=== PATIENT | female | born 1930 | race Caucasian/White ===

== ENCOUNTER 2017-04-16 09:33 | Emergency (ER) | payer MEDICARE, OTHER ==
[~2017-04-16 09:33] MED LIST: ACETAMINOPHEN650 M1 PO; ANTIVERT PO; ANTIVERT12.5 MG PO; BACTROBAN15 GM TOP; BAYER CHEWABLE81 MG PO; BIOTIN1 M1; CENTRUM PO; CERTAGEN PO; CIPRO PO; CITRATE OF MAG300 ML PO; COLACE PO; ERYTHROMYC3.5 GM OPT OD; FISH OIL 1,0001 CAP PO; FISH OIL300 MG; GINKGO60 MG; HYDROCODON-ACE1 EAC7 PO; KEFLEX PO; KEFLEX500 M2 PO; LEVAQUIN250 MG PO; LIPITOR PO; LIPITOR20 MG PO; LOTREL 5/10 MG1 CAP PO; MACROBID100 MG PO; MEDROL4 MG/DOSE- PO; MIRALAX17 GM PO; MULTI-DAY1 TAB; MULTI-DAY1 TAB PO; NEURONTIN100 MG PO; NEXIUM PO; PREVACID; PYRIDIUM PO; SENOKOT S1 TAB PO; SYNTHROID PO; SYNTHROID75 MCG PO; ULTRAM PO; VITAMIN D-32000 UNI2 PO; ZOCOR PO; [UNRECOGNIZED DRUG - REMARK] PO
== END 2017-04-16 12:25 | disposition home or self-care (01) ==
LOC: SED 09:33
DX: R53.83 Other fatigue (principal); Z88.2 Allergy status to sulfonamides; Z79.82 Long term (current) use of aspirin; Z79.899 Other long term (current) drug therapy
CPT/HCPCS: 99283

== ENCOUNTER 2017-05-01 04:40 | Emergency (ER) | payer MEDICARE, OTHER ==
--- NOTE | ~2017-05-01 | CR72 ---
[facility] A Service of [facility] & [facility] RADIOLOGY TEXT RESULTS PATIENT: MICHA JAIME LOCATION: [facility] : [birth year] UNIT #: [id number] AGE: [address]: Mina Young MD SEX: F ORDER DR: [id number] [facility] [address] [place], [place] [address] [id number] E MR#: [id number] Acc #: [id number] NAME: MICHA JAIME : 1930 SEX: F STUDY DATE/TIME: 05/01/2017 5:26 UNIT: [facility] ROOM: STUDY DESCRIPTION: CR Chest Single View Portable Attending Physician: Mina Young M.D. Ordering Physician: Catherine Linder M.D. Primary Care Physician: Art Shen Aprn MEDICAL IMAGING REPORT This report is preliminary unless electronic signature is present EXAM Portable chest INDICATIONS Dizziness since last night PROCEDURE Frontal view of the chest COMPARISON 12/03/2016 FINDINGS Heart size is within normal limits. No dense consolidation, pleural fluid, or pneumothorax. IMPRESSION No active process. Dictated by... Ronnie Castillo M.D. THIS IS AN ELECTRONICALLY VERIFIED REPORT Ronnie Castillo M.D. at 05/06/2017 3:01 PM [place] TD: 05/01/2017 13:29 JOB #: [id number] MEDICAL IMAGING REPORT Page 1 of 1 COPY
--- NOTE | ~2017-05-01 | CT71 ---
[facility] A Service of [facility] & [facility] RADIOLOGY TEXT RESULTS PATIENT: MICHA JAIME LOCATION: [facility] : [birth year] UNIT #: [id number] AGE: [address]: Mina Young MD SEX: F ORDER DR: [id number] [facility] [address] [place], [place] [address] [id number] E MR#: [id number] Acc #: [id number] NAME: MICHA JAIME : 1930 SEX: F STUDY DATE/TIME: 05/01/2017 6:20 UNIT: [facility] ROOM: STUDY DESCRIPTION: CT Head Wo Contrast Attending Physician: Mina Young M.D. Ordering Physician: Catherine Linder M.D. Primary Care Physician: Art Shen Aprn MEDICAL IMAGING REPORT This report is preliminary unless electronic signature is present EXAM Head CT no contrast 05/01/2017. INDICATIONS Dizziness, confusion, nausea, headaches since yesterday. History of vertigo. TECHNIQUE Noncontrast CT brain compared with 01/09/2015. This CT exam was performed with one or more of the following radiation dose reduction techniques: Automatic exposure control, adjustment of mA and/or kV according to patient size, and iterative reconstruction. FINDINGS There is mild generalized atrophy. Sulci and ventricles are otherwise unremarkable and there is no midline shift. No evidence of acute intracranial hemorrhage. No mass, mass effect or edema to suggest acute infarct. No extraaxial fluid collections are present. Interval new but otherwise chronic-appearing lacunar infarct lateral to the genu of the internal capsule on the left. There are chronic ischemic changes in the periventricular white matter and there is atherosclerotic disease. Globes are intact. Bones are intact. Chronic partial opacification of the mastoid air cell complex on the left. IMPRESSION 1. Atrophy and chronic ischemic changes. No clearly acute intracranial process. No evidence of acute intracranial hemorrhage. 2. 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 3. Chronic partial opacification of the mastoid air cell complex on the left. Dictated by... [facility] A Service of [facility] & [facility] RADIOLOGY TEXT RESULTS PATIENT: MICHA JAIME LOCATION: [facility] : [birth year] UNIT #: [id number] AGE: [address]: Mina Young MD SEX: F ORDER DR: Marcos James M.D. THIS IS AN ELECTRONICALLY VERIFIED REPORT Marcos James M.D. at 05/01/2017 3:32 PM Denis TD: 05/01/2017 13:31 JOB #: [id number] MEDICAL IMAGING REPORT Page 1 of 1 COPY
--- NOTE | ~2017-05-01 | MR18 ---
[facility] A Service of [facility] & [facility] RADIOLOGY TEXT RESULTS PATIENT: MICHA JAIME LOCATION: [facility] : [birth year] UNIT #: [id number] AGE: [address]: Mina Young MD SEX: F ORDER DR: [id number] [facility] [address] [place], [place] [address] [id number] E MR#: [id number] Acc #: [id number] NAME: MICHA JAIME : 1930 SEX: F STUDY DATE/TIME: 05/01/2017 8:42 UNIT: [facility] ROOM: STUDY DESCRIPTION: MR Brain Wo Contrast Attending Physician: Mina Young M.D. Ordering Physician: Mina Young M.D. Primary Care Physician: Art Shen Aprn MRI CENTER REPORT This report is preliminary unless electronic signature is present. EXAM MRI brain without. HISTORY 86-year-old female patient with a neurologic deficit. Patient complains of dizziness, confusion, nausea and headache since 04/30/2017. No history of cancer. FINDINGS MRI of the brain was performed without contrast using routine 1.5T imaging technique. There is some motion limitation of the study despite use of motion limiting sequences. There is a head CT for comparison from earlier today. There is no evidence for a recent ischemic insult on the diffusion series. There is a punctate focus of restricted diffusion seen in the left side mastoid air cells. This could be a tiny epidermoid/cholesteatoma. Opacified air cells are seen in this location on the earlier head CT. There is, however, no bone destruction. About 4-5 mm in diameter. At this time it is probably an incidental finding. Consider followup study in 6 months to a year to reassess. Patient has a partially empty sella. Partly seen are degenerative changes in the visualized upper cervical spine. There is generalized atrophy. There is no extraaxial fluid collection. Tiny lacunes in the cerebellar hemispheres. Moderate signal abnormality in the kathia all probably due to small vessel disease. Also bilateral basal ganglionic and thalamic plan lacunes and/or prominent perivascular spaces as well as moderate white matter signal abnormality most confluent in the deep to periventricular white matter. This is all probably due to small vessel disease in age group. There is no particular pattern of atrophy. There is no extraaxial fluid collection. There is no intracranial mass effect. There is no MRI evidence for intracranial hemorrhage. 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 The major intracranial flow voids are maintained. There is prior cataract surgery on the right side. Fluid or inflammatory change noted in the left side mastoid air cells in general. Consider ENT referral given this finding and the small focus of restricted diffusion. Minor paranasal sinus disease, but no sinus air-fluid level. IMPRESSION 1. No evidence for a recent ischemic insult on the diffusion series. 2. 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 3. There is a 4-5 mm focus of restricted diffusion within medial left mastoid air cells. There is no associated bone destruction. This could be a small cholesteatoma/epidermoid. Otherwise there is some opacification of left-sided mastoid air cells. Consider ENT referral for further evaluation at this time. I suspect the restricted diffusion is essentially incidental, but I would recommend that it be followed over the long-term to reassess for change. Recommend next followup MRI with attention to the internal auditory canals at about 6 months to a year. Please correlate clinically to determine if there is concern that the left-sided mastoid air cell opacification is related to the patient's dizziness. STAT * RESULT Dictated by... Ciara Alberts M.D. THIS IS AN ELECTRONICALLY VERIFIED REPORT Ciara Alberts M.D. at 05/01/2017 10:41 AM SAC/pc TD: 05/01/2017 10:16 JOB #: [id number] MRI CENTER REPORT Page 1 of 1 COPY
--- NOTE | ~2017-05-01 | EKG ---
PATIENT: MICHA JAIME UNIT #: [id number] Ventricular Rate: 64 BPM Atrial Rate: 64 BPM P-R Interval: 174 ms QRS Duration: 82 ms Q-T Interval: 412 ms QTC Calculation(Bezet): 425 ms P [place]: 34 degrees Calculated R [place]: -21 degrees Calculated T [place]: 24 degrees Diagnosis Line: Normal sinus rhythm Diagnosis Line: Normal ECG Diagnosis Line: No previous ECGs available Diagnosis Line: Confirmed by JESÚS GILMORE MD ([id number]) on 05/06/2017 Diagnosis Line: 2:29:06 PM INTERPRETING MD: MANDO THOMPSON
[2017-05-01] MEDS ORDERED: LIPITOR40 MG PO (05:22)
[2017-05-01] MEDS ORDERED: PRINIVIL10 MG PO (05:23)
[2017-05-01] MEDS ORDERED: GINKGO BILOBA120 M1 PO (05:23)
[2017-05-01] MEDS ORDERED: ALEVE220 M1 PO (05:23)
[2017-05-01] MEDS ORDERED: SYNTHROID PO (05:23)
[2017-05-01] MEDS ORDERED: ASPIRIN81 M2 PO (05:24)
[2017-05-01] MEDS ORDERED: BIOTIN1000 MCG PO (05:24)
[2017-05-01] MEDS ORDERED: FLONASE SENSIM9.9 ML (05:25)
[2017-05-01 05:53] LABS: POC - CKMB 1.1 ng/mL (0.0-7.9); POC - TROPONIN <0.05 ng/mL (<=0.05)
[2017-05-01 05:59] LABS: BASOPHIL% 0.6 % (0-2.5); EOSINOPHIL# 0.2 X10e3 (0-0.7); EOSINOPHIL% 2.7 % (0.0-7.0); HEMATOCRIT 36.7 % (35.0-45.0); LYMPHOCYTE# 1.6 X10e3 (1.0-3.5); LYMPHOCYTE% 26.9 % (17.0-45.0); MEAN CELL VOLUME 89.9 FL (83-96); MEAN CORPUSCULAR HEMOGLOBIN 29.5 PG (28-34); MEAN CORPUSCULAR HGB CONC 32.8 g/dL (30-36); MEAN PLATELET VOLUME 7.8 FL (6.5-11.5); MONOCYTE# 0.4 X10e3 (0-1.0); MONOCYTE% 7.5 % (3.0-12.0); NEUTROPHIL# 3.7 X10e3 (1.5-7.1); NEUTROPHIL% 62.3 % (40-75); PLATELET COUNT 210 X10e3 (140-420); RED BLOOD COUNT 4.09 X10e (3.90-5.30); RED CELL DISTRIBUTION WIDTH 13.5 % (11.0-15.5); WHITE BLOOD COUNT 5.9 X10e3 (4.0-10.5)
[2017-05-01 06:03] LABS: DIFF IND NO
[2017-05-01 06:16] LABS: INR 0.9; PARTIAL THROMBOPLASTIN TIME 23.5 SECONDS (23.5-31.3)
[2017-05-01 06:28] LABS: ALBUMIN SERUM 3.9 g/dL (3.5-5.0); BILIRUBIN, DIRECT 0.1 mg/dL (0.0-0.2); BILIRUBIN,INDIRECT 0.8 mg/dL (0.0-0.9); BILIRUBIN,TOTAL 0.9 mg/dL (0.2-2.0); CALCIUM SERUM 9.5 mg/dL (8.4-10.2); CREATININE SERUM 0.5 mg/dL (0.6-1.4); GLOM FILT RATE Estimated 86.4 mL/min (>60); MAGNESIUM 1.8 mg/dL (1.6-3.0); POTASSIUM 4.2 mmol/L (3.5-5.1); PROTEIN TOTAL SERUM 6.9 g/dL (6.0-8.3)
[2017-05-01 06:31] LABS: URINE SOURCE CLEAN CATCH
[2017-05-01 06:43] LABS: URINE APPEARANCE CLEAR; URINE BILIRUBIN NEG (NEG); URINE BLOOD NEG (NEG); URINE COLOR YELLOW; URINE GLUCOSE NEG (NEG); URINE KETONE NEG (NEG); URINE LEUKOCYTE ESTERASE 1+ (NEG); URINE NITRATE POS (NEG); URINE PH 5.5 (5-8); URINE PROTEIN NEG (NEG); URINE SPECIFIC GRAVITY 1.013 (1.003-1.035); URINE UROBILINOGEN 0.2 MG/DL (NEG)
[2017-05-01 06:46] LABS: CULTURE INDICATED? YES; URINE SQUAMOUS EPITHELIAL CELL NONE SEEN /[HPF]
[2017-05-01 07:07] LABS: URBCS1 AUWI 0-2 /[HPF] (0-2)
[2017-05-01 07:08] LABS: URINE BACTERIA AUWI 2+ (NEGATIVE)
[2017-05-01 11:59] LABS: POC - CKMB 1.4 ng/mL (0.0-7.9); POC - TROPONIN <0.05 ng/mL (<=0.05)
== END 2017-05-01 12:15 | disposition home or self-care (01) ==
LOC: CED 04:40
PROVIDERS: Emergency Medicine; Student in an Organized Health Care Education/Training Program
DX: R42 Dizziness and giddiness (principal); Z88.2 Allergy status to sulfonamides; Z79.82 Long term (current) use of aspirin; Z79.899 Other long term (current) drug therapy
CPT/HCPCS: 36415; 51701; 70450; 70551; 71010; 80048; 80076; 81003; 82553; 82947; 83735; 83880; 84484; 85025; 85610; 85730; 87086; 87088; 87186; 93005; 99285

== ENCOUNTER 2017-06-09 16:14 | Emergency (ER) | payer MEDICARE, OTHER ==
--- NOTE | ~2017-06-09 | EKG ---
PATIENT: MICHA JAIME UNIT #: [id number] Ventricular Rate: 85 BPM Atrial Rate: 85 BPM P-R Interval: 158 ms QRS Duration: 78 ms Q-T Interval: 370 ms QTC Calculation(Bezet): 440 ms P [place]: -8 degrees Calculated R [place]: -26 degrees Calculated T [place]: 41 degrees Diagnosis Line: Normal sinus rhythm Diagnosis Line: Normal ECG Diagnosis Line: When compared with ECG of 01-MAY-2017 05:47, Diagnosis Line: No significant change was found Diagnosis Line: Confirmed by TRACY SANABRIA MD ([id number]) on Diagnosis Line: 06/10/2017 12:38:53 PM INTERPRETING MD: ELLY THOMPSON
--- NOTE | ~2017-06-09 | CR63 ---
[facility] A Service [facility] RADIOLOGY TEXT RESULTS PATIENT: MICHA JAIME LOCATION: [facility] : [birth year] UNIT #: [id number] AGE: [address]: Denzel Galicia MD SEX: F ORDER DR: [id number] [address] [address] [id number] E MR#: [id number] Acc #: [id number] NAME: MICHA JAIME : 1930 SEX: F STUDY DATE/TIME: 06/09/2017 18:19 UNIT: [facility] ROOM: STUDY DESCRIPTION: CR Chest 2 View Attending Physician: Denzel Galicia M.D. Ordering Physician: Denzel Galicia M.D. Primary Care Physician: Art Shen Aprn MEDICAL IMAGING REPORT This report is preliminary unless electronic signature is present. EXAM Chest, 2 views, dated 06/09/17. COMPARISON Single view chest dated 06/09/17. HISTORY Cough today. FINDINGS Two views of the chest were obtained. PA and lateral examination of the chest upright shows a good expansion of the parenchyma with a normal distribution of the pulmonary vascularity. There is no indication of congestion, effusion, infiltrate, tumor, or nodular density. The pleural reflections and diaphragmatic contours are normal. The cardiac silhouette and mediastinal anatomy is within normal limits. IMPRESSION Normal chest. Dictated by... Bianca Best M.D. THIS IS AN ELECTRONICALLY VERIFIED REPORT Bianca Best M.D. at 06/10/2017 3:28 PM CPR/pc TD: 06/10/2017 06:43 JOB #: [id number] MEDICAL IMAGING REPORT [facility] A Service [facility] RADIOLOGY TEXT RESULTS PATIENT: MICHA JAIME LOCATION: [facility] : [birth year] UNIT #: [id number] AGE: [address]: Denzel Galicia MD SEX: F ORDER DR: Page 1 of 1
--- NOTE | ~2017-06-09 | CR72 ---
[facility] A Service of [facility] & [facility] RADIOLOGY TEXT RESULTS PATIENT: MICHA JAIME LOCATION: [facility] : [birth year] UNIT #: [id number] AGE: [address]: Denzel Galicia MD SEX: F ORDER DR: [id number] [address] [address] [id number] E MR#: [id number] Acc #: [id number] NAME: MICHA JAIME : 1930 SEX: F STUDY DATE/TIME: 06/09/2017 17:08 UNIT: SED ROOM: STUDY DESCRIPTION: CR Chest Single View Portable Attending Physician: Denzel Galicia M.D. Ordering Physician: Denzel Galicia M.D. Primary Care Physician: Art Shen Aprn MEDICAL IMAGING REPORT This report is preliminary unless electronic signature is present. EXAM Portable chest, 06/09/2017 INDICATION Chest pain that started today. FINDINGS AP portable chest was obtained and compared with 05/01/2017. Heart is enlarged. Lung volumes are quite low. There is atelectasis or infiltrate in the bases, some of which could be artifact due to soft tissue attenuation. Consider upright PA and lateral views of the chest. No pneumothorax. Dictated by... Cecil Reddy Jr., M.D. THIS IS AN ELECTRONICALLY VERIFIED REPORT Cecil Reddy Jr., M.D. at 06/10/2017 8:50 AM SAÚL/olga lidia TD: 06/10/2017 03:05 JOB #: [id number] MEDICAL IMAGING REPORT Page 1 of 1
[~2017-06-09 16:14] MED LIST changes: +ALEVE220 M1 PO; +ASPIRIN81 M2 PO; +BIOTIN1000 MCG PO; +FLONASE SENSIM9.9 ML; +GINKGO BILOBA120 M1 PO; +LIPITOR40 MG PO; +PRINIVIL10 MG PO
[2017-06-09 17:03] LABS: BASOPHIL% 0.7 % (0-2.5); EOSINOPHIL# 0.1 X10e3 (0-0.7); EOSINOPHIL% 2.1 % (0.0-7.0); HEMATOCRIT 36.2 % (35.0-45.0); HEMOGLOBIN 12.3 gm/dL (12.0-16.0); INR 0.9; LYMPHOCYTE# 1.8 X10e3 (1.0-3.5); LYMPHOCYTE% 27.2 % (17.0-45.0); MEAN CELL VOLUME 89.5 FL (83-96); MEAN CORPUSCULAR HEMOGLOBIN 30.4 PG (28-34); MEAN CORPUSCULAR HGB CONC 33.9 g/dL (30-36); MEAN PLATELET VOLUME 7.9 FL (6.5-11.5); MONOCYTE# 0.6 X10e3 (0-1.0); MONOCYTE% 9.1 % (3.0-12.0); NEUTROPHIL# 3.9 X10e3 (1.5-7.1); NEUTROPHIL% 60.9 % (40-75); PLATELET COUNT 199 X10e3 (140-420); PROTHROMBIN TIME (PATIENT) 10.5 SECONDS (9.5-12.4); RED BLOOD COUNT 4.04 X10e (3.90-5.30); RED CELL DISTRIBUTION WIDTH 13.6 % (11.0-15.5); WHITE BLOOD COUNT 6.4 X10e3 (4.0-10.5)
[2017-06-09 17:06] LABS: DIFF IND NO
[2017-06-09 17:10] LABS: PARTIAL THROMBOPLASTIN TIME 24.5 SECONDS (25.6-38.1)
[2017-06-09 17:11] LABS: ALBUMIN SERUM 4.4 g/dL (3.5-5.0); ALKALINE PHOSPHATASE 80 U/L (32-92); ALT (SGPT) 20 U/L (10-40); AST (SGOT) 24 U/L (10-42); BILIRUBIN,TOTAL 0.6 mg/dL (0.2-2.0); BLOOD UREA NITROGEN 16 mg/dL (9-23); CALCIUM SERUM 9.1 mg/dL (8.4-10.2); CARBON DIOXIDE 23 mmol/L (22-31); CHLORIDE 99 mmol/L (100-111); CREATININE SERUM 0.5 mg/dL (0.6-1.4); GLOM FILT RATE Estimated 86.4 mL/min (>60); GLUCOSE FASTING 115 mg/dL (70-110); POTASSIUM 4.1 mmol/L (3.5-5.1); PROTEIN TOTAL SERUM 7.5 g/dL (6.0-8.3); SODIUM 131 mmol/L (135-145)
[2017-06-09 17:14] LABS: BILIRUBIN, DIRECT <0.1 mg/dL (0.0-0.2); BILIRUBIN,INDIRECT 0.5 mg/dL (0.0-0.9)
[2017-06-11 10:57] LABS: POC - CKMB <1.0 ng/mL (0.0-7.9); POC - TROPONIN <0.05 ng/mL (<=0.05)
[2017-06-11 11:19] LABS: POC - CKMB <1.0 ng/mL (0.0-7.9); POC - TROPONIN <0.05 ng/mL (<=0.05)
[2017-06-11 14:09] LABS: POC - TROPONIN <0.05 ng/mL (<=0.05)
== END 2017-06-09 19:17 | disposition home or self-care (01) ==
LOC: SED 16:14
PROVIDERS: Emergency Medicine
DX: J20.9 Acute bronchitis, unspecified (principal); I10 Essential (primary) hypertension; K21.9 Gastro-esophageal reflux disease without esophagitis; E03.9 Hypothyroidism, unspecified; Z98.890 Other specified postprocedural states; Z88.2 Allergy status to sulfonamides; Z79.82 Long term (current) use of aspirin; Z79.899 Other long term (current) drug therapy
CPT/HCPCS: 36415; 71010; 71020; 80048; 80076; 82553; 84484; 85025; 85610; 85730; 93005; 94640; 99285